=== PATIENT | female | born 1985 | race Caucasian/White ===

== ENCOUNTER → 2019-04-19 | Outpatient (CLI) | payer SELFPAY ==
[~2019-04-19] MED LIST: MEXILETINE150 MG PO; NORTRIPTYLINE25 MG PO; PYRIDIUM200 M1 PO; Percocet 325 MG1 TAB PO; ULTRAM50 MG PO; ZOFRAN ODT8 M1 PO
== END | disposition home or self-care (01) ==
LOC: CARD 11:04
DX: Z51.81 Encounter for therapeutic drug level monitoring (principal); Z79.899 Other long term (current) drug therapy